=== PATIENT | female | born 1945 | race Caucasian/White ===

== ENCOUNTER 2016-06-19 10:33 | Inpatient (IN) | payer OTHER ==
[~2016-06-19] VITALS: Ht 167.6 cm; Wt 82.6 kg
[2016-06-19] VITALS (15 sets, daily range): BP systolic 80–155; BP diastolic 26–95
--- NOTE | ~2016-06-19 | DEA ---
[facility] [place] [address] SUMMARY Name: [facility]EM [facility]BUENA [facility] Room #: 242-P [facility] IN M.R.#: [id number] Admission: 06/19/16 Attend Phys: Bjorn Eduardo, DO Discharge: 06/19/16 Date of : 45 Report #: [id number] THIS REPORT FOR: //name// CC: ALETHA physician/PCP Bjorn Eduardo DATE OF SERVICE: 06/19/2016 DATE OF : 06/19/2016. CHIEF COMPLAINT: Cardiac arrest. HISTORY OF PRESENT ILLNESS: This is a 71-year-old female who was found by her to be unresponsive, pulseless and apneic at home. EMS was summoned and the patient was revived with ACLS protocols at the scene. The patient was transferred here initially with her rhythm of ventricular fibrillation, which did respond to ACLS protocols and she improved to the point where she had a normal sinus rhythm, but was quite wide. The patient was felt to have had 55 minutes of CPR before arriving at the Emergency Department. The patient was seen in the Emergency Department urgently for this severely ill patient. The patient was placed on a ventilator. Since she was placed on the ventilator, it was noted that the patient had a great deal of blood coming up out of her endotracheal tube. The patient's heart rhythm was unstable. She twice went into asystole and was revived. The patient was noted to have low hemoglobin as well. Source of bleeding was not found. The patient was stabilized with pressors. She was quite tenuous and it was difficult to maintain her oxygen saturations. The patient's oxygen saturations were generally below 90. During the time that she was here. There were discussions held with the family by myself and others. We explained how dire the situation was and what the likely outcome was. The wished to wait until family arrived. I explained to him at length that it was unlikely that she would survive that long, but he wanted to make the attempt anyway. The patient was eventually transferred to the ICU. In the ICU, she continued with the same set of problems. She was maximally ventilated with 100% FIO2 with 12 of PEEP, rate of 18 and her saturations were oftentimes below 90. The patient was on pressors the whole time. The patient did not improve at all. Three hours after being in the ICU, the patient eventually and after having had discussions with her once the heart had stopped, she was not resuscitated. By: 1401 1452 Bjorn Eduardo DO /nt
--- NOTE | ~2016-06-19 | HC ---
[facility] [place] [address] CON[facility]ATION [facility] Room #: 242-P [facility] IN M.R.#: [id number] Admission: 06/19/16 Attend Phys: Bjorn Eduardo, Discharge: 06/19/16 Date of : 45 Report #: [id number] THIS REPORT FOR: //name// CC: FAM physician/PCP Bjorn Eduardo DATE OF SERVICE: 06/19/2016 PRIMARY PHYSICIAN: Unknown. REFERRAL PHYSICIAN: Dr. Bjorn Eduardo. REASON FOR REFERRAL: Cardiopulmonary arrest. HISTORY OF PRESENT ILLNESS: The patient is a 71-year-old white female who was brought to the emergency room after being found unresponsive by her . She was found to be in ventricular fibrillation. She was brought to the emergency room. In the ER, the patient did exhibit episodes of ventricular fibrillation with ventricular tachycardia. The EKG initially showed ST wave elevation. Cardiology has evaluated the patient. The patient was felt to be down about 40 minutes. She was found down at home at a bathroom by her . Presently, she has moderate hemoptysis through the ET tube. She was found to have hemoptysis on arrival to the emergency room. Cause of this is unknown. She was given CPR on the field. She was intubated. Portable chest x-ray is pending. Initial laboratory data shows severe mixed respiratory and metabolic acidosis. She is nonresponsive. She remains hypoxic, on mechanical ventilation, on FiO2 100%. According to the , patient has not seen a physician for a long time. She normally does homeopathic medicine. She is said to have Lyme disease. PAST MEDICAL HISTORY: As mentioned above, otherwise unknown. PAST SURGICAL HISTORY: Unknown. ALLERGIES: No known allergies. MEDICATIONS AT HOME: Unknown. FAMILY HISTORY: Unknown. [facility] [place] [address] [place] [address] CON[facility]ATION [facility] Room #: 242-P [facility] IN .R.#: [id number] Admission: 06/19/16 Attend Phys: Bjorn Eduardo DO Discharge: 06/19/16 Date of : 45 Report #: [id number] SOCIAL HISTORY: Unknown. REVIEW OF SYSTEMS: Deferred as the patient is intubated and obtunded. PHYSICAL EXAMINATION: GENERAL: She is not arousable. VITAL SIGNS: Blood pressure on arrival to the emergency room was 125/85 mmHg, pulse was 110, now is 59; respiratory rate is 25, saturation is 76% to . HEENT: Normocephalic, atraumatic. She is orally intubated. There is some old blood, but no active hemoptysis noted through the ET tube at this time. NECK: Supple without lymphadenopathy or thyromegaly. CHEST: Breath sounds are coarse bilaterally. No wheezes. CARDIOVASCULAR: Heart sounds are distant. No obvious murmurs or gallop. BREASTS: Deferred. ABDOMEN: Soft, nontender, no organomegaly or masses felt. GENITOURINARY: Deferred. RECTAL: Deferred. EXTREMITIES: Mildly cyanotic throughout. No clubbing. No edema. She has an osseous IV site in the right upper femur. LABORATORY DATA: Portable chest x-ray is pending. Arterial blood gas revealed pH 7.66, pCO2 of 53, pO2 of 67, and FiO2 100%. Sodium 146, potassium 3.1, chloride of 111, CO2 is 19, BUN is 20, and creatinine is 1.1. WBC 5400, hemoglobin 13.3, and platelets are low at 74,000. Troponin 2.1. IMPRESSION: 1. Apparent cardiopulmonary arrest in this 71-year-old white female due to acute myocardial infarction. She has also had episodic ventricular fibrillation, ventricular tachycardia, amiodarone was given. 2. Hemoptysis. Source unknown, but may be related to cardiogenic pulmonary edema versus upper airway trauma related to oral airway manipulation. 3. Probable severe anoxic brain injury. 4. Profound acidosis mixed, metabolic and respiratory. Due to cardiac arrest along with presumed increased VQ mismatch related to alveolar hemorrhage. 5. Thrombocytopenia. Suspect disseminated intravascular coagulation related to severe illness. 6. History of apparent Lyme disease. RECOMMENDATION: We will await chest x-ray, correct acidosis as possible. We will perform emergent bronchoscopy to assess patency of the large airways given profound hypoxia. She will need to be evaluated over the next couple days regarding her presumed anoxic/hypoxic brain injury. If the patient remains encephalopathic, prognosis is felt to be quite poor. [address] [address] CON[facility]ATION [facility] Room #: 242-P [facility] IN M.R.#: [id number] Admission: 06/19/16 Attend Phys: Bjorn Eduardo, DO Discharge: 06/19/16 Date of : 45 Report #: [id number] We will obtain DIC profile given hemoptysis. If we are not able to oxygenate the patient, overall look appears to be grim. Thank you for this consultation. <ELECTRONICALLY SIGNED> By: Abe Benoit MD 07/01/16 1124 1248 1659 Abe Benoit MD /nt
--- NOTE | ~2016-06-19 | EKG ---
[place] [address] [facility] [place] [address] ELECTROCARDIOGRAM REPORT Name: JEM BALBUENA Room #: 242-P [facility] IN M.R.#: [id number] Admission: 06/19/16 Attend Phys: Bjorn Eduardo DO Discharge: Date of : 45 Report #: [id number] THIS REPORT FOR: //name// [facility] ED Test Date: 2016-06-19 Test Time: 10:36:57 Pat Name: JEM BALBUENA Department: Room: 242 Gender: F [employer] Consultant: MZOOMabel : 1945 Requested By: Angelica Zurita Order Number: [id number] MD: Nicola Coleman Measurements Intervals [place] Rate: 123 P: 249 SD: 119 QRS: -63 QRSD: 198 T: 15 QT: 396 QTc: 567 Interpretive Statements Ectopic atrial tachycardia vs sinus tachycadia RBBB. Anterior ST segment elevations. No previous ECG available for comparison Electronically Signed On 06-19-2016 14:26:36 CDT by Nicola Coleman [email or web address] <ELECTRONICALLY SIGNED> By: Nicola Coleman MD 06/19/16 1426 103 35 Nicola Coleman MD /ELLEN
--- NOTE | ~2016-06-19 | HC ---
[facility] [place] [address] CON[facility]ATION [facility] Room #: [facility]-P [facility] IN M.R.#: [id number] Admission: 06/19/16 Attend Phys: Bjorn Eduardo, Discharge: 06/19/16 Date of : 45 Report #: [id number] THIS REPORT FOR: //name// CC: ALETHA physician/PCP Bjorn Eduardo HISTORY OF PRESENT ILLNESS: The patient is a 71-year-old woman who was found down by her . Apparently around 9 o'clock this morning, she called him on the phone and complained of midsternal chest pain or tightness and nausea. He went to their home and she was found unresponsive in the bathroom. He thinks may be she had fallen, although was not certain about this. Paramedics were summoned and her initial original rhythm was ventricular fibrillation at 09:48. The down time prior to instituting ACLS could have been in excess of half hour. CPR was started and she received about 55 minutes of CPR before arriving to the emergency department comatose. She was intubated. Copious amounts of blood around her airway and endotracheal tube. She received sequential doses of epinephrine and additional prolonged CPR in the emergency department. During a brief period of hemodynamic stability, a 12-lead electrocardiographic was performed. This was at 10:36 a.m. and demonstrated sinus tachycardia with extensive anterior and high lateral ST elevation. She is comatose with saturations in the 70s, on 100% oxygen via endotracheal tube. ALLERGIES: No known drug allergies. MEDICATIONS: He takes no medicines regularly. PAST MEDICAL HISTORY: Her past history and medical records are unknown. SOCIAL HISTORY: Not obtainable. FAMILY HISTORY: Not obtainable. REVIEW OF SYSTEMS: Not obtainable. PHYSICAL EXAMINATION: GENERAL: Reveals a comatose and intubated woman. Her torso is mottled, appearance of livido reticularis Saturations are in the 70s, on 100% oxygen ventilated with high PEEP. VITAL SIGNS: Blood pressure is 190/70, heart rate is 60 and regular. She is hypothermic. NECK: There are neither xanthelasma, subcutaneous xanthomata, oral mucosal or digital cyanosis or kyphoscoliosis present. CHEST: Reveals scattered rhonchi equal. Equal breath sounds. CARDIAC: Regular rate and rhythm with normal S1, S2. Heart sounds are distant. ABDOMEN: Soft. EXTREMITIES: Without clubbing or edema. [facility] [address] [place] [address] CONSULTATION Name: ADELINA BALB[facility]NACLARISSE [facility] Room #: 242-P [facility] IN M.R.#: [id number] Admission: 06/19/16 Attend Phys: Bjorn Eduardo DO Discharge: 06/19/16 Date of : 45 Report #: [id number] LABORATORY DATA: EKG as detailed above. Sodium 137, potassium 3.1, creatinine 1.1, troponin 2.17, hemoglobin 13, hematocrit 41. No chest x-ray. IMPRESSION: 1. Out of hospital cardiac arrest with around 60 minutes of CPR preceded by prolonged downtime. 2. Extensive anterolateral myocardial infarction. 3. Ventricular fibrillation. 4. Congestive heart failure, acute systolic. RECOMMENDATIONS: I have had an extended discussion with the patient's and son (by phone). I believe this combination of events including very prolonged resuscitative efforts is not a survivable event. The patient's reports that his had expressed to him not wanting any of this done. Efforts will be made towards keeping her comfortable in the terminal phases of her illness. 65min critical care time, direct patient care <ELECTRONICALLY SIGNED> By: Paul Baires MD, FACC 06/23/16 0916 1135 1350 Paul Baires MD, FACC /nt
--- NOTE | ~2016-06-19 | P ---
[facility] [place] [address] PROCEDURE REPORT Name[facility] #: [facility]P [facility] IN M.R.#: [id number] Admission: 06/19/16 Attend Phys: Bjorn Eduardo DO Discharge: 06/19/16 Date of : 45 Report #: [id number] THIS REPORT FOR: //name// CC: ALETHA physician/PCP Bjorn Eduardo DATE OF SERVICE: 06/19/2016 BRONCHOSCOPY NOTE PROCEDURE: Diagnostic bronchoscopy. CLINICAL HISTORY: This is a 71-year-old white female with acute cardiopulmonary arrest, myocardial infarction now with profound hypoxia. A diagnostic bronchoscopy was performed. IMPRESSION: Mild blood seen in all five lobes, but no active bleeding is noted. No mucus plugging noted. No blood clots were also noted. DESCRIPTION OF PROCEDURE: Following performed in emergent circumstances. The patient is intubated. Previously placed ET tube, a flexible fiberoptic bronchoscope was introduced without difficulty. The distal trachea along with the rest of the airway shows tinged blood emanating from all 5 lobes. Otherwise, no blood clot was noted or mucus plugging. I do not see any active bleeding sites other than blood emanating from the distal airways. Otherwise, the distal trachea, sandy, right main stem bronchus, right upper lobe, right middle lobe and right lower lobe was unremarkable other than the blood as mentioned above. Left main stem bronchus and left upper lobe was otherwise unremarkable, again with distal bleeding seen. The airways itself remains appears patent, not obstructive. The patient tolerated the procedure fairly well with a baseline saturation around 60% currently in the Emergency Room. Blood pressure has been 110, but very labile going to as low as 60-70 mmHg. <ELECTRONICALLY SIGNED> By: Abe Benoit MD 07/01/16 1124 1529 [id number] Abe Benoit MD /nt
[2016-06-19 10:53] LABS: HEMOGLOBIN 13.3 gm/dL (12.0-15.0)
[2016-06-19 10:55] LABS: HEMATOCRIT 41.8 % (37.0-47.0); MCH 29.3 pg (26.0-34.0); MCHC 31.8 g/dL (28.0-37.0); MCV 92.3 fL (80.0-100.0); RBC 4.53 mil/uL (4.20-5.00); RDW 14.3 % (10.5-14.5); WBC 5.4 thou/uL (4.0-11.0)
[2016-06-19 10:57] LABS: MANUAL DIFF YES
[2016-06-19 11:05] LABS: CALCIUM 9.2 mg/dL (8.5-10.1); CREATININE 1.1 mg/dL (0.6-1.0); POTASSIUM 3.1 mmol/L (3.5-5.1)
[2016-06-19 11:06] LABS: POC CA IONIZED 6.2 mg/dL (4.5-5.3); POC CREATININE 1.2 mg/dL (0.6-1.3); POC HEMOGLOBIN 13.9 g/dL (12.0-15.0); POC POTASSIUM 3.6 mmol/L (3.5-5.1)
[2016-06-19 11:15] LABS: TROPONIN-I 2.19 ng/mL (<0.04-0.07)
[2016-06-19 11:33] LABS: ABG SAMPLE TYPE ARTERIAL; BE(vivo) -23.5 mmol/L (-2 to +3); LACTATE 12.25 mmol/L (0.5-2.0); O2(CT) 16.5 mL/dL (15.0-23.0); O2Hb 77.7 % (92.0-98.0); PCO2 53.6 mmHg (35.0-45.0); PO2 67.9 mmHg (80.0-100.0); pH 6.888 (7.360-7.450); sO2 76.9 % (92.0-98.0); tCO2 11.6 mmol/L (24.0-30.0)
[2016-06-19 11:34] LABS: STICK SITE R.RADIAL; TIDAL VOLUME 500 ml
[2016-06-19 12:03] LABS: ABSOLUTE NEUTROPHILS 0.5 thou/uL (1.4-8.2); PLATELET COUNT 74 thou/uL (150-400); POIKILOCYTOSIS SLIGHT; TOTAL CELL COUNT 100
[2016-06-19 12:56] LABS: URINE BILIRUBIN NEGATIVE (Negative); URINE BLOOD 3+ (Negative); URINE COLOR YELLOW; URINE GLUCOSE-RANDOM* 2+ (Negative); URINE KETONES NEGATIVE (Negative); URINE LEUKOCYTES-REFLEX NEGATIVE (Negative); URINE PROTEIN (DIPSTICK) 3+ (Negative); URINE SPECIFIC GRAVITY >= 1.030 (1.003-1.035); URINE UROBILINOGEN 0.2 E.U./dl (0.2-1.0)
[2016-06-19 12:57] LABS: APTT 47.5 Seconds (24.5-32.8); INR 1.2; PROTIME 12.7 Seconds (9.3-11.4)
[2016-06-19 13:09] LABS: ABG SAMPLE TYPE ARTERIAL; HCO3 21.6 mmol/L (22.0-26.0); O2(CT) 13.3 mL/dL (15.0-23.0); PCO2 51.8 mmHg (35.0-45.0); tCO2 23.2 mmol/L (24.0-30.0)
[2016-06-19 13:10] LABS: LACTATE 8.62 mmol/L (0.5-2.0); O2Hb 76.1 % (92.0-98.0); PO2 48.7 mmHg (80.0-100.0); Pressure Support 20 cm H20; pH 7.238 (7.360-7.450)
[2016-06-19 13:20] LABS: SQUAMOUS 0-3 Few /LPF (0-3)
[2016-06-19 13:21] LABS: CRYSTALS None Seen /LPF (None Seen); HYALINE CASTS 0-3 Few /LPF (None Seen); URINE RBC >20 Many /HPF (0-2); URINE WBC-REFLEX >25 Many /HPF (0-5)
[2016-06-19 13:43] LABS: HIV-1 P24 AG Nonreactive (Nonreactive)
[2016-06-19 23:11] LABS: HBsAG-EMPLOYEE EXPOSURE Negative (Negative); HCV AB-EMPLOYEE EXPOSURE <0.1 (0.0-0.9)
== END 2016-06-19 19:45 | DRG 208 ==
LOC: ER 10:33 → EROBS 12:04 → ICU 12:04
PROVIDERS: Emergency Medicine; Internal Medicine Pulmonary Disease
PROC: 0BJ08ZZ Inspection of Tracheobronchial Tree, Via Natural or Artificial Opening Endoscopic (ICD-10-PCS; principal; 2016-06-19)
PROC: 0BH17EZ Insertion of Endotracheal Airway into Trachea, Via Natural or Artificial Opening (ICD-10-PCS; 2016-06-19)
PROC: 5A1935Z Respiratory Ventilation, Less than 24 Consecutive Hours (ICD-10-PCS; 2016-06-19)
PROC: 02HV33Z Insertion of Infusion Device into Superior Vena Cava, Percutaneous Approach (ICD-10-PCS; 2016-06-19)
PROC: B548ZZA Ultrasonography of Superior Vena Cava, Guidance (ICD-10-PCS; 2016-06-19)
DX: J96.91 Respiratory failure, unspecified with hypoxia (principal); I21.09 ST elevation (STEMI) myocardial infarction involving other coronary artery of anterior wall; I50.21 Acute systolic (congestive) heart failure; I47.2 Ventricular tachycardia; E87.2 Acidosis; R04.2 Hemoptysis; I49.01 Ventricular fibrillation; D69.6 Thrombocytopenia, unspecified; Z66 Do not resuscitate
CPT/HCPCS: 10078; 27000